=== PATIENT | male | born 1940 | race Caucasian/White ===

== ENCOUNTER → 2017-07-16 10:17 | Outpatient (CLI) | payer MEDICARE, BC ==
[2014-07-09 08:23] VITALS: BMI 24.3
[~2017-07-16 10:17] MED LIST: BAYER ASPIRIN325 MG PO; LISINOPRIL10 MG PO; PLAVIX75 MG PO; PRAVACHOL40 MG PO; VITAMIN D31000 UNIT PO
== END | disposition home or self-care (01) ==
LOC: D.MRI 10:17
DX: M54.12 Radiculopathy, cervical region (principal)